=== PATIENT | female | born 1960 ===

== ENCOUNTER 2023-10-15 14:01 | Emergency (ER) | payer OTHER ==
[~2023-10-15] VITALS: Ht 157.5 cm; Wt 78.0 kg
[2023-10-15 14:09] VITALS: O2SAT 98
[2023-10-15] MEDS: HYDROCODONE/ACETAMINOPHEN 7.5/325MG TABLET PO ONE (16:40)
[2023-10-15] MEDS ORDERED: TOPUD MT (18:19)
[2023-10-15] MEDS ORDERED: IBUP-1523 MT (18:19)
[2023-10-15] MEDS ORDERED: TRAM50TA3 MT (18:19)
[2023-10-15 19:35] VITALS: BP 147/83; PULSE 75; RESP 19; TEMP 98.7
== END 2023-10-15 19:36 | disposition home or self-care (01) ==
LOC: ER 14:01
DX: M79.601 Pain in right arm (principal); M79.602 Pain in left arm; R51.9 Headache, unspecified; E11.9 Type 2 diabetes mellitus without complications; I10 Essential (primary) hypertension
CPT/HCPCS: 73090; 73110; 70450; 99284; Z7610; A4565